=== PATIENT | female | born 1955 | race Caucasian/White ===

== ENCOUNTER 2021-07-09 10:31 | Emergency (ER) | payer OTHER ==
[~2021-07-09] VITALS: Ht 157.5 cm; Wt 77.3 kg
[2021-07-09] MEDS ORDERED: METF-1211 PO (10:38)
[2021-07-09] MEDS ORDERED: ACETAMINOPHEN 500 MG TABLET PO ONE (11:45)
[2021-07-09] MEDS ORDERED: KETOROLAC TROMETHAMINE 30 MG/ML VIAL IM ONE (11:45)
[2021-07-09] MEDS ORDERED: LIDOCAINE 5% TRANSDERMAL PATCH TD ONE (11:45)
[2021-07-09 13:34] VITALS: BP 120/84
== END 2021-07-09 13:55 | disposition home or self-care (01) ==
LOC: EMS 10:33
DX: S30.0XXA Contusion of lower back and pelvis, initial encounter (principal); M43.16 Spondylolisthesis, lumbar region; M48.061 Spinal stenosis, lumbar region without neurogenic claudication; M51.36 Other intervertebral disc degeneration, lumbar region; E11.9 Type 2 diabetes mellitus without complications; W10.8XXA Fall (on) (from) other stairs and steps, initial encounter; Y93.89 Activity, other specified; Y92.89 Other specified places as the place of occurrence of the external cause; Y99.8 Other external cause status
CPT/HCPCS: 72131; 72192; 82962; 96372; 99284; J1885